=== PATIENT | male | born 1950 | race Caucasian/White ===

== ENCOUNTER 2024-07-21 06:17 | Day surgery (SDC) | payer MEDICARE, OTHER, SELFPAY ==
[2024-07-21] VITALS (24 sets, daily range): BP systolic 121–190; BP diastolic 59–129; BMI 31.0
[2024-07-21] MEDS: NORMOSOL-R/PLASMALYTE-A 1000 IV (07:09)
[2024-07-21] MEDS: Pyridium 200 MG PO (08:54)
[2024-07-21] MEDS: SUBLIMAZE 25 MCG IV (09:21)
--- NOTE | 2024-07-21 11:12 | W.PN.URO.CBU ---
Today's Communication / Plan
-
post procedural admit for cbi hand irrigation
Assessment / Plan
-
post op hematuria with clot retention willstart cbi iv abs hold asa serial hgb and will consider transexamic acid
Diagnosis
-
Date of Service: July 21, 2024
-
Patient Diagnosis:pt had uneventful laser blader stone but large friable prostate. In PACU could not void 750cc drained uith several clots [address] way woodard placed ppt on asa and continues bleeding
Post Op Day:
Subjective
-
fewls better with drainage bladder
Objective
-
Vital Signs
Temp Pulse Resp BP Pulse Ox
96.8 F L 60 8 173/101 95
07/21/24 09:40 07/21/24 10:00 07/21/24 10:00 07/21/24 10:00 07/21/24 10:00
Review of Systems
-
: Difficulty Voiding and Bleeding
Physical Exam
-
General - well developed, well nourished, no acute distress
Chest - clear bilaterally
Abdomen - soft, non-tender, positive bowel sounds, no CVAT, no incisional pain or distention
Genitalia - normal
Rectal - normal
Skin - warm & dry with no rash
Neuro - AOx3, no motor deficits
Extremities - no clubbing, no cyanosis, no edema
Care Review
Data Reviewed
Discussed with: Nursing and Family ( aware)
[2024-07-21] MEDS: DETROL LA 4 MG PO (12:27)
--- NOTE | 2024-07-21 12:55 | PTCARENOTE ---
Received patient at 1255 from PACU. Patient AAOx3, no c/o pain at present. CBI infusing, woodard draining pink tinged fluid fluid, no visible clots. Patient tolerating clear liquids and is ordering lunch at present. Call valenzuela in reach. Patient
ambulated to bathroom with supervision.
[2024-07-21] MEDS: LMX 4 1 APPLIC TOPICAL (14:38)
[2024-07-21] MEDS: LIPITOR 40 MG PO (21:36)
[2024-07-22] MEDS: SYNTHROID 100 MCG PO (05:57)
[2024-07-22 06:53] LABS: Hematocrit 41.8 % (39.0-52.0); Hemoglobin 14.8 g/dL (13.0-18.0)
[2024-07-22 07:30] VITALS: BP 148/81
[2024-07-22] MEDS: ZESTRIL 2.5 MG PO (08:36)
[2024-07-22] MEDS: TOPROL XL 50 MG PO (08:36)
[2024-07-22] MEDS: PROSCAR 5 MG PO (08:36)
[2024-07-22] MEDS: PROTONIX 20 MG PO (08:36)
[2024-07-22] MEDS: LEVAQUIN 100 IV (08:52)
--- NOTE | 2024-07-22 09:12 | PTCARENOTE ---
CBI running light pink to clear - no clots noted. Chambers removed per urologist for voiding trial.
--- NOTE | 2024-07-22 09:36 | CM ---
CM reviewed medical records. Discharge pending voiding trial.
--- NOTE | 2024-07-22 11:16 | PTCARENOTE ---
Pt able to void 200mL blood-tinged urine. No clots noted. Pt feels well.
[2024-07-22 13:00] VITALS: BP 139/74
--- NOTE | 2024-07-22 13:21 | W.PN.URO.CBU ---
Today's Communication / Plan
-
if disteniioo or pain replace woodard and teach woodard and leg bag care
Assessment / Plan
-
post op hematuria with clot retention Bleeding susided hgb staable voidig trial if fails home with foey
Diagnosis
-
Date of Service: July 22, 2024
-
Patient Diagnosis:
Post Op Day:
Patient Diagnosis:pt had uneventful laser blader stone but large friable prostate. In PACU could not void 750cc drained uith several clots [address] way woodard placed ppt on asa and continues bleeding
Post Op Day:
Subjective
-
hematuria gone now voiding trial
Objective
-
Vital Signs
Temp Pulse Resp BP Pulse Ox
98.5 F 73 16 148/81 97
07/22/24 07:30 07/22/24 07:30 07/22/24 07:30 07/22/24 07:30 07/22/24 07:30
Intake and Output
07/21/24 07/22/24 07/23/24
06:59 06:59 06:59
Intake Total 1620 / 1620
Output Total 950 / 950
Balance 670 / 670
Intake:
Oral fluids 720 / 720
IV fluids (Total) 900 / 900
normosol 900 / 900
Output:
True Urine Output from CBI 950 / 950
Laboratory Results
07/22/24 06:09
Review of Systems
-
: No Symptoms
Physical Exam
-
General - well developed, well nourished, no acute distress
Chest - clear bilaterally
Abdomen - soft, non-tender, positive bowel sounds, no CVAT, no incisional pain or distention
Genitalia - normal
Rectal - normal
Skin - warm & dry with no rash
Neuro - AOx3, no motor deficits
Extremities - no clubbing, no cyanosis, no ed
Care Review
Data Reviewed
Discussed with: Nursing
Total Time Spent with Patient (in minutes): 0 did d/c summary
[2024-07-25 11:45] LABS: Stone Analysis Mass 187 mg
== END 2024-07-22 13:32 | disposition home or self-care (01) ==
LOC: SDS 06:17
PROVIDERS: ATTENDING PHYSICIAN Specialist
DX: N21.0 Calculus in bladder (principal); N40.0 Benign prostatic hyperplasia without lower urinary tract symptoms
CPT/HCPCS: 52317; 82365; 85014; 85018; 93005